=== PATIENT | male | born 1985 | race Caucasian/White ===

== ENCOUNTER 2016-10-15 12:24 | Emergency (ER) | payer OTHER ==
[~2016-10-15] VITALS: Ht 188 cm; Wt 117.9 kg
[2016-10-15 12:24] VITALS: BP 140/69
[2016-10-15] MEDS ORDERED: GENT0.3O3 OD (12:32)
[2016-10-15] MEDS ORDERED: FLUORESCEIN OPHTH 1 MG STRIP OD ONE (13:15)
[2016-10-15] MEDS ORDERED: CLAR1TAB2 PO (13:27)
[2016-10-15] MEDS ORDERED: FLON1SPR (13:27)
[2016-10-15] MEDS ORDERED: PATA2.5S OU (13:27)
== END 2016-10-15 13:48 | disposition home or self-care (01) ==
LOC: M ED 13:27
DX: H10.11 Acute atopic conjunctivitis, right eye (principal); F17.200 Nicotine dependence, unspecified, uncomplicated; Z79.2 Long term (current) use of antibiotics; Z88.8 Allergy status to other drugs, medicaments and biological substances

== ENCOUNTER 2016-12-14 23:06 | Emergency (ER) | payer OTHER ==
[~2016-12-14] VITALS: Ht 190.5 cm; Wt 127.3 kg
[~2016-12-14 23:06] MED LIST: CLAR1TAB2 PO; FLON1SPR; GENT0.3O3 OD; PATA2.5S OU
[2016-12-15] MEDS ORDERED: ACETAMINOPHEN 325 MG TAB PO ONE (00:45)
[2016-12-15 00:56] VITALS: BP 128/84
--- NOTE | 2016-12-15 07:05 | REP ---
Clinical: Pain . Technique: AP, lateral, bilateral oblique views left foot . Findings: The osseous structures and joint spaces are intact and relatively normal. There is no evidence for acute fracture or dislocation. Surrounding soft tissues are unremarkable. No subcutaneous emphysema or radiodense foreign body. Impression: No acute fracture or dislocation. No obvious acute abnormality. Signed by Pedro Geller MD 12/15/2016 06:57 A
== END 2016-12-15 01:13 | disposition home or self-care (01) ==
LOC: M ED 23:06
DX: M79.672 Pain in left foot (principal); F17.210 Nicotine dependence, cigarettes, uncomplicated; Z88.6 Allergy status to analgesic agent

== ENCOUNTER 2017-05-13 20:32 | Emergency (ER) | payer OTHER ==
[~2017-05-13] VITALS: Ht 188 cm; Wt 120.5 kg
[2017-05-14] MEDS ORDERED: PRED20TA PO (01:11)
[2017-05-14] MEDS ORDERED: predniSONE 20 MG TAB PO ONE (01:15)
[2017-05-14 01:23] VITALS: BP 137/78
== END 2017-05-14 01:29 | disposition home or self-care (01) ==
LOC: M ED 20:32
DX: L23.0 Allergic contact dermatitis due to metals (principal); F17.210 Nicotine dependence, cigarettes, uncomplicated; Z88.8 Allergy status to other drugs, medicaments and biological substances; Z91.09 Other allergy status, other than to drugs and biological substances